=== PATIENT | female | born 1965 | race African-American/Black ===

== ENCOUNTER 2018-06-07 16:51 | Emergency (ER) | payer BC, OTHER ==
--- NOTE | 2018-06-07 18:25 | RAD ---
LUMBAR SPINE THREE VIEWS: 06/07/18 HISTORY: Back pain. FINDINGS: Four lumbar type vertebrae are apparent on the frontal view. Pedicles are intact. Vertebral body heig hts and alignment are maintained. No acute fracture or dislocation. IMPRESSION: No acute osseous abnormalities are demonstrated. Four lumbar type vertebrae. Care must be taken when assigning numbering on cross sectional imaging. POS: [facility]
[2018-06-07] MEDS ORDERED: Ketorolac Tromethamine 30 MG/ML VIAL ONE (20:02)
== END 2018-06-07 20:40 | disposition home or self-care (01) ==
LOC: ERS 16:51
DX: M54.5 Low back pain (principal); I10 Essential (primary) hypertension
CPT/HCPCS: 72100; 96372; J1885

== ENCOUNTER 2019-01-16 13:20 | Emergency (ER) | payer BC ==
[2019-01-16] MEDS ORDERED: Cyclobenzaprine 10 MG TAB ONE (14:29)
[2019-01-16] MEDS ORDERED: Ketorolac Tromethamine 30 MG/ML VIAL ONE (14:29)
== END 2019-01-16 14:49 | disposition home or self-care (01) ==
LOC: ERS 13:20
DX: M54.5 Low back pain (principal); I10 Essential (primary) hypertension
CPT/HCPCS: 96372; J1885

== ENCOUNTER 2021-01-02 22:34 | Emergency (ER) | payer BC ==
[2021-01-02] MEDS ORDERED: Diazepam 5 MG TAB ONE (22:54)
[2021-01-02] MEDS ORDERED: Lidocaine 1% PF 5 ML VIAL ONE (22:54)
== END 2021-01-02 23:47 | disposition home or self-care (01) ==
LOC: ERS 22:34
DX: M54.5 Low back pain (principal); I10 Essential (primary) hypertension
CPT/HCPCS: 20552

== ENCOUNTER 2021-04-30 19:02 | Emergency (ER) | payer BC ==
[2021-04-30] MEDS ORDERED: Ketorolac Tromethamine 30 MG/ML VIAL ONE (20:06)
[2021-04-30] MEDS ORDERED: Diazepam 5 MG TAB ONE (20:06)
== END 2021-04-30 20:14 | disposition home or self-care (01) ==
LOC: ERS 19:02
DX: S39.012A Strain of muscle, fascia and tendon of lower back, initial encounter (principal); I10 Essential (primary) hypertension; X50.0XXA Overexertion from strenuous movement or load, initial encounter
CPT/HCPCS: 96372; 99283; J1885

== ENCOUNTER 2024-08-31 17:51 | Inpatient (IN) | payer BC ==
[~2024-08-31 17:51] MED LIST: Iopamidol-370 76% 500 ML MDV (1 ML CHARGE) ONE
[2024-08-31 18:32] LABS: #Basophils 0.08 10x3/uL (0.0-0.2); %Basophils 0.9 % (0.0-1.0); %Eosinophils 0.8 % (0.0-10.0); %Lymphocytes 37.7 % (21.0-51.0); %Monocytes 4.8 % (0.0-10.0); %Neutrophils 55.6 % (42.0-75.0); Hematocrit 42.2 % (36.0-47.0); Hemoglobin 13.7 g/dL (12.0-16.0); Mean Corpuscular HGB CONC 32.5 g/dL (32.0-36.0); Mean Corpuscular Hemoglobin 29.5 pg (27.0-31.0); Mean Corpuscular Volume 90.9 fL (78.0-98.0); Mean Platelet Volume 10.3 fL (7.4-10.4); Platelet Count 306 10x3/uL (130-400); RBC Distribution Width 14.8 % (11.5-14.5); Red Blood Cell (RBC) Count 4.64 mill/uL (4.20-5.40)
[2024-08-31 18:49] LABS: ALT (SGPT) 18 U/L (8-55); AST (SGOT) 19 U/L (5-34); Albumin 3.9 g/dL (3.5-5.0); Alkaline Phosphatase 79 U/L (40-110); Anion Gap 15 mmol/L (10-20); BUN (Urea Nitrogen) 14 mg/dL (9.8-20.1); Bilirubin, Total 0.5 mg/dL (0.2-1.2); Calc. Creatinine Clearance 0 mL/min (70-130); Calcium 9.3 mg/dL (7.8-10.44); Carbon Dioxide 24 mmol/L (22-29); Chloride 108 mmol/L (98-107); Estimated GFR 86; Globulin 3.1 g/dL (2.4-3.5); Glucose 86 mg/dL (70-105); Potassium 3.4 mmol/L (3.5-5.1); Sodium 144 mmol/L (136-145)
[2024-08-31 18:57] LABS: Troponin I 0.023 ng/mL (< 0.028)
[2024-08-31] MEDS ORDERED: Aspirin Chewable 81 MG TAB ONE (19:43)
[2024-08-31] MEDS ORDERED: Acetaminophen 500 MG TAB ONE (19:43)
[2024-09-01] MEDS ORDERED: Ondansetron ODT 4 MG TAB PO PRN (00:03)
[2024-09-01] MEDS ORDERED: Acetaminophen 650 MG Suppository PR PRN (00:03)
[2024-09-01] MEDS ORDERED: Ondansetron PF 4 MG/2 ML Vial IVP PRN (00:03)
[2024-09-01 00:17] VITALS: BMI 27.7
[2024-09-01] MEDS: Acetaminophen 325 MG TAB PO SCH (01:05)
[2024-09-01 02:02] LABS: Troponin I 0.026 ng/mL (< 0.028)
[2024-09-01 07:03] LABS: #Basophils 0.04 10x3/uL (0.0-0.2); %Basophils 0.7 % (0.0-1.0); %Eosinophils 1.4 % (0.0-10.0); %Lymphocytes 47.1 % (21.0-51.0); %Monocytes 8.6 % (0.0-10.0); Hematocrit 36.2 % (36.0-47.0); Hemoglobin 11.7 g/dL (12.0-16.0); Mean Corpuscular HGB CONC 32.3 g/dL (32.0-36.0); Mean Corpuscular Hemoglobin 29.6 pg (27.0-31.0); Mean Corpuscular Volume 91.6 fL (78.0-98.0); Mean Platelet Volume 10.7 fL (7.4-10.4); Platelet Count 254 10x3/uL (130-400); RBC Distribution Width 14.9 % (11.5-14.5); Red Blood Cell (RBC) Count 3.95 mill/uL (4.20-5.40)
[2024-09-01 07:20] LABS: Anion Gap 10 mmol/L (10-20); BUN (Urea Nitrogen) 13 mg/dL (9.8-20.1); Calc. Creatinine Clearance 113 mL/min (70-130); Calcium 8.3 mg/dL (7.8-10.44); Carbon Dioxide 24 mmol/L (22-29); Chloride 111 mmol/L (98-107); Estimated GFR 101; Glucose 85 mg/dL (70-105); Potassium 3.4 mmol/L (3.5-5.1); Sodium 142 mmol/L (136-145)
[2024-09-01 07:27] LABS: Troponin I 0.029 ng/mL (< 0.028)
[2024-09-01] MEDS: Famotidine 20 MG TAB PO SCH (08:47)
[2024-09-01] MEDS: Famotidine/PF 20 mg/2ml Vial SLOW IVP SCH (08:48)
[2024-09-01] MEDS: Potassium Chloride 20 MEQ TAB PO SCH (10:09)
[2024-09-01] MEDS: Nitroglycerin 4.9 GM Bottle SL PRN (13:38)
[2024-09-01 19:14] LABS: Troponin I 0.013 ng/mL (< 0.028)
[2024-09-02 08:39] LABS: Cardiac Risk 3.1 (Less than 4.5)
[2024-09-02] MEDS: Aspirin 81 mg Enteric Coated Tablet PO SCH ×2 (08:50→09:10)
[2024-09-02] MEDS: Sacubitril 24MG/Valsartan 26 MG TAB PO SCH (09:07)
[2024-09-02] MEDS: Empagliflozin 10 MG TAB PO SCH (09:07)
[2024-09-02] MEDS: Spironolactone 25 MG TAB PO SCH (11:04)
[2024-09-02] MEDS: Enoxaparin 40 MG (0.4 mL) SYRINGE SC SCH (11:04)
[2024-09-03 05:24] LABS: Hematocrit 39.6 % (36.0-47.0); Hemoglobin 13.1 g/dL (12.0-16.0); Mean Corpuscular HGB CONC 33.1 g/dL (32.0-36.0); Mean Corpuscular Hemoglobin 29.8 pg (27.0-31.0); Mean Corpuscular Volume 90.2 fL (78.0-98.0); Mean Platelet Volume 10.8 fL (7.4-10.4); Platelet Count 289 10x3/uL (130-400); RBC Distribution Width 15.1 % (11.5-14.5); Red Blood Cell (RBC) Count 4.39 mill/uL (4.20-5.40)
[2024-09-03 05:39] LABS: Anion Gap 12 mmol/L (10-20); BUN (Urea Nitrogen) 12 mg/dL (9.8-20.1); Calc. Creatinine Clearance 97 mL/min (70-130); Calcium 8.6 mg/dL (7.8-10.44); Carbon Dioxide 22 mmol/L (22-29); Chloride 109 mmol/L (98-107); Estimated GFR 90; Glucose 97 mg/dL (70-105); Magnesium 2.1 mg/dL (1.6-2.6); Potassium 3.7 mmol/L (3.5-5.1); Sodium 139 mmol/L (136-145)
[2024-09-03] MEDS: Spironolactone 25 MG TAB PO SCH ×2 (09:40→17:47)
[2024-09-03] MEDS: Enoxaparin 40 MG (0.4 mL) SYRINGE SC SCH (09:40)
[2024-09-03] MEDS: Furosemide 40 MG (4 mL) VIAL SLOW IVP SCH (11:44)
[2024-09-03] MEDS: Magnesium 2 GM/50 ML(in water) 2 GM in Premix 1 BAG IVPB SCH (11:44)
[2024-09-03] MEDS: Potassium Chloride 20 MEQ TAB PO SCH (11:44)
[2024-09-03] MEDS: Carvedilol 3.125 MG TAB PO SCH (17:47)
[2024-09-04 05:25] LABS: Anion Gap 12 mmol/L (10-20); BUN (Urea Nitrogen) 17 mg/dL (9.8-20.1); Calc. Creatinine Clearance 87 mL/min (70-130); Calcium 9.1 mg/dL (7.8-10.44); Carbon Dioxide 22 mmol/L (22-29); Chloride 109 mmol/L (98-107); Estimated GFR 83; Glucose 109 mg/dL (70-105); Magnesium 2.6 mg/dL (1.6-2.6); Potassium 4.2 mmol/L (3.5-5.1); Sodium 139 mmol/L (136-145)
[2024-09-04] MEDS: Furosemide 40 MG (4 mL) VIAL SLOW IVP SCH (06:00)
[2024-09-05 05:20] LABS: Anion Gap 13 mmol/L (10-20); BUN (Urea Nitrogen) 22 mg/dL (9.8-20.1); Calc. Creatinine Clearance 90 mL/min (70-130); Calcium 9.2 mg/dL (7.8-10.44); Carbon Dioxide 24 mmol/L (22-29); Chloride 105 mmol/L (98-107); Estimated GFR 87; Glucose 102 mg/dL (70-105); Magnesium 2.4 mg/dL (1.6-2.6); Potassium 3.7 mmol/L (3.5-5.1); Sodium 138 mmol/L (136-145)
[2024-09-05] MEDS ORDERED: CATH FS PRN (07:45)
[2024-09-05] MEDS: Sodium Chloride 0.9% 1,000 ML IV SCH (11:15)
[2024-09-05] MEDS ORDERED: fentaNYL 50 mcg/mL 1 mL Vial ONE (12:23)
[2024-09-05] MEDS ORDERED: Heparin 10,000 UNITS/ 10 ML VIAL ONE (12:23)
[2024-09-05] MEDS ORDERED: Midazolam HCl 2 mg/2 ml Vial ONE (12:23)
[2024-09-05] MEDS ORDERED: Nitroglycerin 50 MG/250 ML BOT 250 ML ONE (12:24)
[2024-09-05] MEDS ORDERED: Iopamidol 370 76% 100 ML VIAL ONE (12:59)
[2024-09-05] MEDS ORDERED: Nitroglycerin 0.4 MG TAB (25 Tab Bottle) SL PRN (13:52)
[2024-09-05] MEDS ORDERED: Sodium Chloride 0.9% 200 ML IV PRN (13:52)
[2024-09-05] MEDS: Rosuvastatin 20 MG TAB PO SCH (19:47)
[2024-09-06 04:05] VITALS: TEMP 98.1
[2024-09-06 05:39] LABS: Anion Gap 14 mmol/L (10-20); BUN (Urea Nitrogen) 16 mg/dL (9.8-20.1); Calc. Creatinine Clearance 89 mL/min (70-130); Carbon Dioxide 23 mmol/L (22-29); Chloride 106 mmol/L (98-107); Estimated GFR 87; Glucose 105 mg/dL (70-105); Magnesium 2.2 mg/dL (1.6-2.6); Potassium 4.3 mmol/L (3.5-5.1); Sodium 139 mmol/L (136-145)
[2024-09-06] MEDS: Senokot S 8.6-50 MG TAB PO SCH (08:21)
[2024-09-06] MEDS: Furosemide 40 MG TAB PO SCH (08:21)
[2024-09-06 11:28] VITALS: BP 93/65
== END 2024-09-06 16:03 | disposition home or self-care (01) | DRG 286 ==
LOC: ERS 17:51 → OBS 22:53 → INTOOBSV 22:53 → OBSVTOIN 09-01 16:44
PROVIDERS: ADMIT Student in an Organized Health Care Education/Training Program; ATTEND Internal Medicine
PROC: 4A023N7 Measurement of Cardiac Sampling and Pressure, Left Heart, Percutaneous Approach (ICD-10-PCS; principal; 2024-09-05)
PROC: B2111ZZ Fluoroscopy of Multiple Coronary Arteries using Low Osmolar Contrast (ICD-10-PCS; 2024-09-05)
DX: I11.0 Hypertensive heart disease with heart failure (principal); I50.23 Acute on chronic systolic (congestive) heart failure; G89.29 Other chronic pain; M54.9 Dorsalgia, unspecified; I25.10 Atherosclerotic heart disease of native coronary artery without angina pectoris; I45.10 Unspecified right bundle-branch block; E87.6 Hypokalemia; I42.8 Other cardiomyopathies
CPT/HCPCS: 36415; 71045; 71275; 80048; 80053; 80061; 83735; 83880; 84484; 85025; 85027; 85379; 93005; 93306; 93458; 93798; 94760; 99152; 99153; C1769; C1887; C1894; G0378; J1644; J1650; J1940; J2250; J3010; J3475; Q9967